=== PATIENT | female | born 1975 | race Caucasian/White ===

== ENCOUNTER 2017-05-03 08:03 | Emergency (ER) | payer BC, SELFPAY ==
[2017-05-03 08:04] VITALS: BP 172/80; PULSE 91; RESP 14; TEMP 36.8; O2SAT 95; BMI 39.5
--- NOTE | 2017-05-03 08:28 | ED.DCSUM_ITS ---
- ER Visit Summary Date of Service: 05/03/17 Chief Complaint: Dizzy History of Present Illness: The patient is a 42 F who states that yesterday she was bent over cleaning a toilet when she stood up she merely got the sensation that the room was spinning. She has had nausea and vomiting. She states with any movement such as going from sitting to laying or laying to sitting the room spins. The symptoms improved during the night and now she feels more off balance. She states that this is been episodic in the past and usually resolved. Today she still had some residual dizziness and was feeling dehydrated. She denies any speech arm or leg difficulties. No significant headache. No muscle cramping. The patient's symptoms in the past have all been related to change in positions such as rolling over in bed and going to sit up as well as being bent over. She was seen in the emergency room several years ago and had a negative head CT. Physical Examination: Afebrile vital signs are stable Gen: Well-nourished well-developed Head: Normocephalic atraumatic Eyes: Perrl EOMI no nystagmus ENT: TMs clear no rhinorrhea moist mucous membranes Neck: Supple no lymphadenopathy no JVD nontender CVS: Regular rate rhythm no murmurs normal S1-S2 Respiratory: No distress clear to auscultation bilaterally chest nontender Abdomen: Soft nontender nondistended normal bowel sounds no masses Back: Nontender Extremity: Nontender no edema Skin: Normal color no rash Neuro: alert orientated ?3 CN II-XII intact normal strength sensation reflexes gait cerebellar Psych: Normal affect normal mood Test Results: CBC and BMP were obtained. Slight leukocytosis noted in a blood sugar 123. Emergency Department Course and Treatment: Patient received IV fluids Zofran and Valium. Patient is able to walk to the bathroom without assistance. She has no nystagmus. I believe this to be positional vertigo. I do not feel at this time CT is indicated. Impression: 1. Positional vertigo This note was generated with [employer] dictation software. It may contain incorrect words, spelling, and punctuation that were not noted in review of the chart prior to signing ED Disposition - Plan for ED Patient: Disposition: Home or Assisted Living Chief Complaint: Dizziness Instructions: ED BPV Vertigo Prescriptions: Ondansetron [Zofran Odt] 4 mg PO Q8H PRN PRN #10 tab PRN Reason: Nausea Diazepam [Valium] 5 mg PO Q8 PRN #10 tab PRN Reason: Vertigo Referrals: Martín Lopez MD [Primary Care Provider] - 1 Week
[2017-05-03 08:43] VITALS: BP 156/89; PULSE 82; RESP 16; O2SAT 95
[2017-05-03] MEDS: 0.9% Normal Saline 1,000 ML 1000 ML IV ×2 (08:49→09:26)
[2017-05-03] MEDS: Ondansetron 4 MG/2 ML Vial IV (08:49)
--- NOTE | 2017-05-03 08:51 | ED.RN ---
Patient c/o dizziness since yesterday with one episode of vomiting. Symptoms resolve with lying down.
[2017-05-03] MEDS: diazePAM 5 MG Tablet 2.5 MG PO (09:08)
[2017-05-03 09:18] LABS: Absolute Lymphocyte Count 1.64 X10^3/ul (0.83-4.51); Absolute Neutrophil Count 10.6 X10^3/uL (2.0-7.7); Basophil# 0.02 X10^3/uL; Basophil% 0.2 % (0-1); Eosinophil# 0.29 X10^3/uL; Eosinophils% 2.2 % (0-5); Hematocrit 42.4 % (37-47); Hemoglobin 13.9 g/dl (12.0-15.0); Lymphocyte # 1.64 X10^3/ul (4.0); Lymphocyte % 12.4 % (19-41); Mean Corp Hgb Conc 32.8 g/gl (32-36); Mean Corpuscular Hgb 29.5 pg (27.0-32.0); Monocyte# 0.64 X10^3/uL; Monocyte% 4.9 % (0-10); Neutrophil # 10.56 X10^3/uL (2.7-7.7); Neutrophil % 80.1 % (47-70); Platelet Count 366 K/mm3 (150-450); RBC Distribution Width CV 13.8 % (11.6-14.6); RBC Distribution Width SD 45.3 fl (35.1-43.9); Red Blood Count 4.71 M/mm3 (4.2-5.4); White Blood Count 13.2 K/mm3 (4.4-11.0)
[2017-05-03 09:19] LABS: POSITIVE COUNT NO; POSITIVE DIFFERENTIAL NO; POSITIVE MORPHOLOGY NO
[2017-05-03 09:25] LABS: Anion Gap 10 (5-15); BUN 11 mg/dL (7-18); BUN/Creat Ratio 17.9 RATIO (10-20); Calcium,Total 9.2 mg/dL (8.5-10.1); Chloride 104 mmol/L (98-107); Creatinine, Serum 0.62 mg/dL (0.55-1.02); EST Glomerular Filtration Rate 113 mL/min (>60); Est Glom Filt Rate - Afr Amer 136 mL/min (>60); Estimated Creatinine Clearance 113.78 ml/min; Glucose 123 mg/dL (74-106); Potassium 3.8 mmol/L (3.5-5.1); Sodium Level 139 mmol/L (136-145)
[2017-05-03 11:47] VITALS: BP 134/80; PULSE 88; RESP 17; RESP 18; O2SAT 96
== END 2017-05-03 11:47 | disposition home or self-care (01) ==
PROVIDERS: Emergency Provider Emergency Medicine; Family Provider Family Medicine; PCP Family Medicine
DX: H81.10 Benign paroxysmal vertigo, unspecified ear (principal); D72.829 Elevated white blood cell count, unspecified
CPT/HCPCS: 80048; 85025; 96361; 96374; 99283; J7030; J2405